=== PATIENT | male | born 1970 | race Caucasian/White ===

== ENCOUNTER 2021-01-10 00:37 | Emergency (ER) | payer SELFPAY | END 2021-01-10 00:46 | disposition left against medical advice (07) | LOC: ER 00:39 | DX: Z02.89 Encounter for other administrative examinations (principal); Z53.21 Procedure and treatment not carried out due to patient leaving prior to being seen by health care provider ==

== ENCOUNTER 2021-03-26 15:15 | Emergency (ER) | payer SELFPAY ==
[~2021-03-26] VITALS: Ht 177.8 cm; Wt 79.4 kg
[2021-03-26 15:50] VITALS: BP 157/100
[2021-03-26] MEDS ORDERED: IBUPROFEN 800 MG TAB PO ONE (16:30)
== END 2021-03-26 16:54 | disposition home or self-care (01) ==
LOC: ER 15:15
DX: H60.91 Unspecified otitis externa, right ear (principal); I10 Essential (primary) hypertension; F17.210 Nicotine dependence, cigarettes, uncomplicated

== ENCOUNTER 2021-03-27 14:51 | Emergency (ER) | payer SELFPAY ==
[~2021-03-27] VITALS: Ht 177.8 cm; Wt 79.4 kg
[2021-03-27 15:25] VITALS: BP 161/106
== END 2021-03-27 15:41 | disposition home or self-care (01) ==
LOC: ER 14:51
DX: H60.91 Unspecified otitis externa, right ear (principal); I10 Essential (primary) hypertension; F17.210 Nicotine dependence, cigarettes, uncomplicated